=== PATIENT | female | born 1985 | race Caucasian/White ===

== ENCOUNTER 2020-04-25 08:54 | Emergency (ER) | payer OTHER ==
--- NOTE | 2020-04-25 09:23 | ED.PDOC ---
History of Present Illness - General Chief Complaint: Respiratory Problem Stated Complaint: Cough, COVID- Exposure Time Seen by Provider: 04/25/20 09:20 - History of Present Illness Initial Comments: The patient is a 35 year old with no significant past medical history who presents to the ED with her for COVID-19 exposure. They had a close contact who tested positive for COVID-19 yesterday. She complains of myalgias, r unny nose, and dry cough. She denies significant shortness of breath at this time. No fevers. No other complaints at this time. Allergies/Adverse Reactions: Allergies Sumatriptan [From Imitrex] Allergy (Verified 07/17/14 14:15) Home Medications: Ambulatory Orders [id number] [Fioricet] 1 ea PO Q6HR PRN #12 tab 05/31/15 Review of Systems - Review of Systems Constitutional: States: malaise EENTM: States: nose congestion Respiratory: States: cough. Denies: short of breath Cardiology: Denies: chest pain, palpitations Gastrointestinal/Abdominal: Denies: abdominal pain, diarrhea, nausea, vomiting Genitourinary: States: no symptoms reported Musculoskeletal: States: muscle pain, muscle stiffness Skin: States: no symptoms reported Neurological: States: no symptoms reported Endocrine: States: no symptoms reported Hematologic/Lymphatic: States: no symptoms reported All other Systems: Reviewed and Negative Past Medical History (General) - Patient Medical History Hx Seizures: No Hx Stroke: No Hx Dementia: No Hx Asthma: Yes Hx of COPD: No Hx Cardiac Disorders: No Hx Congestive Heart Failure: No Hx Pacemaker: No Hx Hypertension: No Hx Thyroid Disease: No Hx Diabetes: No Hx Gastroesophageal Reflux: No Hx Renal Disease: No Hx Cancer: No Hx of HIV: No Hx Hepatitis C: No Hx MRSA: No MRSA Source:: Wound - Vaccination History Hx Influenza Vaccination: No - Social History Hx Tobacco Use: Yes Hx Alcohol Use: No Hx Substance Use: No Hx Substance Use Treatment: No Hx Depression: No - Female History Patient : No Family Medical History - Family History Father Living Status: Hx Cardiac Disease: Yes Physical Exam - Physical Exam General Appearance: Alert, No apparent distress, Well Developed Eyes, Ears, Nose, Throat Exam: normal ENT inspection Neck: non-tender, full range of motion Respiratory: chest non-tender, normal breath sounds, no respiratory distress, no accessory muscle use Cardiovascular/Chest: normal peripheral pulses, regular rate, rhythm, no murmur Gastrointestinal/Abdominal: non tender, soft Rectal Exam: deferred Extremity: normal range of motion, non-tender Neurologic: no motor/sensory deficits, alert, oriented x 3 Skin Exam: normal color, warm/dry Progress - Progress Progress: 04/25/20 09:23 Patient presents with COVID-19 exposure and COVID-like symptoms. Will check CXR and COVID-19 swab. 04/25/20 10:04 CXR clear, COVID-19 test pending. Will continue outpatient symptomatic management and she will follow up with her PCP. Home care instructions and return indications reviewed. - EKG/XRAY/CT Comments: No acute cardiopulmonary process Departure - Departure Clinical Impression: Suspected COVID-19 virus infection Time of Disposition: 10:05 Disposition: Discharge to Home or Self Care Condition: Fair Departure Forms: ED Discharge - Pt. Copy, Patient Portal Self Enrollment Instructions: Coronavirus Disease 2019 (COVID-19), Acute Bronchitis, Adult (DC) Diet: resume usual diet Activity: increase activity as tolerated Home Medications: Ambulatory Orders [id number] [Fioricet] 1 ea PO Q6HR PRN #12 tab 05/31/15 Additional Instructions: Follow up with your primary care provider in 1-2 weeks. Return to the ED with any worsening symptoms.
--- NOTE | 2020-04-25 09:52 | RAD ---
EXAM DESCRIPTION: Chest,1 View CLINICAL HISTORY: cough, fever COMPARISON: None Available. TECHNIQUE: One view radiograph of the chest FINDINGS: Cardiac silhouette shows normal heart size. Pulmonary vascularity is within normal limits. Lungs show no confluent infiltrates. No pleural effusion. No pneumothorax. No acute osseous abnormality. IMPRESSION: No acute cardiopulmonary process. Electronically signed by: Carlton Angel MD 04/25/2020 9:50 AM CDT
[2020-04-25 10:40] VITALS: BP 98/58; TEMP 98.4; O2SAT 99
== END 2020-04-25 10:30 | disposition home or self-care (01) ==
LOC: ER 08:54
DX: R05 Cough (principal); M79.10 Myalgia, unspecified site; F17.200 Nicotine dependence, unspecified, uncomplicated; Z20.828 Contact with and (suspected) exposure to other viral communicable diseases